=== PATIENT | female | born 1955 | race African-American/Black ===

== ENCOUNTER → 2017-07-23 | Outpatient (CLI) | payer OTHER ==
[~2017-07-23] MED LIST: ACET-1256 PO; CAMPOIN7 TD; GUAI100L PO; ONDA4TAB7 SL
== END | disposition home or self-care (01) ==
LOC: C.PAPS 17:42
PROVIDERS: ATTEND Physician Assistant
DX: Z12.4 Encounter for screening for malignant neoplasm of cervix (principal)